=== PATIENT | female | born 1990 | race African-American/Black ===

== ENCOUNTER 2021-01-06 16:56 | Observation (INO) ==
[2021-01-06] MEDS ORDERED: NS 0.9% 1000 ml BAG 1,000 ML IV ONE (20:15)
[2021-01-06 21:58] LABS: ABS Monocytes 0.7 10^3/ul (0-0.8); ABS Neutrophils 5.5 10^3/ul (1.5-7.7); Eosinophil % 0.4 %; Hematocrit 41 % (35-47); Hemoglobin 14.1 g/dL (12.0-16.0); Lymphocyte % 32.3 %; Mean Corpuscular HGB Conc 34 g/dL (31-36); Mean Corpuscular Hemoglobin 31 pg (27-31); Mean Corpuscular Volume 92 fL (80-97); Mean Platelet Volume 7.4 fL (7.4-10.4); Platelet Count 352 10^3/uL (150-450); Red Blood Count 4.49 10^6 /uL (3.70-4.87); Red Cell Distribution Width 14 % (10-15); White Blood Count 9.3 10^3/uL (3.5-10.8)
[2021-01-06 22:20] LABS: ALT 7 U/L (7-52); Albumin 4.4 g/dL (3.2-5.2); Albumin/Globulin Ratio 1.4 (1-3); Alkaline Phosphatase 73 U/L (35-149); Blood Urea Nitrogen 6 mg/dL (6-24); C Reactive Protein 4.21 mg/L (<8.01); CO2 Carbon Dioxide 22 mmol/L (22-32); Chloride 104 mmol/L (101-111); EGFR African American 103.3 (>60); EGFR Non-African American 85.4 (>60); Globulin 3.1 g/dL (2-4); Glucose 68 mg/dL (70-100); Lipase < 10 U/L (11.0-82.0); Sodium 137 mmol/L (135-145); Total Protein 7.5 g/dL (6.4-8.9)
[2021-01-06 22:26] LABS: HCG Pregnancy < 0.60 mIU/mL
[2021-01-06 22:33] LABS: Anion Gap 11 mmol/L (2-11)
[2021-01-06 23:32] LABS: Urine Appearance Cloudy; Urine Color Yellow; Urine Specific Gravity 1.014 (1.002-1.030)
[2021-01-06 23:33] LABS: Urine Bilirubin Negative (Negative); Urine Blood Negative (Negative); Urine Glucose Negative (Negative); Urine Ketones 2+ (Negative); Urine Nitrite Negative (Negative); Urine Protein Negative (Negative); Urine Urobilinogen Negative (Negative)
[2021-01-07] MEDS ORDERED: Metoclopramide 5 MG/ML VIAL (10 mg) IV SLOW PU ONE (00:35)
[2021-01-07] MEDS ORDERED: Ciprofloxacin 400mg IVPREMIX 400 MG/200 ML BAG IVPB ONE (00:36)
[2021-01-07 01:02] LABS: AST Redraw 21 U/L (13-39); Magnesium 1.8 mg/dL (1.9-2.7); Potassium Redraw 3.5 mmol/L (3.5-5.0)
[2021-01-07] MEDS ORDERED: Metoclopramide 5 MG/ML VIAL (10 mg) IV PRN (01:52)
[2021-01-07] MEDS ORDERED: Magnesium Sulfate IV 1GM/100ML 1 GM/100 ML BAG IV ONE (01:54)
[2021-01-07] MEDS ORDERED: NS 0.9% 1000 ml BAG 1,000 ML IV ONE (01:55)
[2021-01-07 02:42] LABS: Lithium < 0.10 mmol/L (0.6-1.2)
[2021-01-07] MEDS: Prochlorperazine 5 mg/ml 2 ml VIAL (10 mg) IV PRN ×2 (04:46→12:27)
[2021-01-07] MEDS: NS 0.9% 1000 ml BAG 1,000 ML IV SCH ×3 (04:50→22:49)
[2021-01-07] MEDS: metroNIDAZOLE IV 500 MG/100ML 500 MG/100 ML BAG IVPB SCH ×2 (06:49→14:03)
[2021-01-07] MEDS ORDERED: cefTRIAXone 1 gm/50 mL NS BAG 1 GM/50 ML BAG IVPB SCH (08:00)
[2021-01-08] MEDS: NS 0.9% 1000 ml BAG 1,000 ML IV SCH (05:40)
[2021-01-08 07:01] LABS: Calcium 8.1 mg/dL (8.6-10.3); EGFR African American 141.3 (>60); EGFR Non-African American 116.8 (>60); Potassium 3.4 mmol/L (3.5-5.0)
[2021-01-08] MEDS ORDERED: Potassium Chloride LIQUID 20 MEQ/15 ML LIQUID PO ONE (07:42)
[2021-01-08] MEDS ORDERED: Magnesium Sulfate 2 gm BAG 2 GM/50 ML BAG IVPB ONE (09:35)
[2021-01-08 11:47] VITALS: BP 138/92
== END 2021-01-08 13:45 | disposition home or self-care (01) ==
LOC: SSU 16:56 → ED 16:56 → SUATTDRO 01-07 01:49 → SSU 01-07 03:52
PROVIDERS: ADMIT Student in an Organized Health Care Education/Training Program; ATTEND Internal Medicine

== ENCOUNTER 2021-07-31 11:52 | Inpatient (IN) ==
[2021-07-31] MEDS ORDERED: LORazepam 2 mg VIAL 1 ml IV PUSH ONE (12:00)
[2021-07-31] MEDS ORDERED: Lorazepam PYXIS KEY PRN ×2 (12:00→21:54)
[2021-07-31] MEDS ORDERED: Lactated Ringers 1000 ml BAG 1,000 ML IV ONE ×2 (12:00→13:55)
[2021-07-31 12:25] LABS: ABS Eosinophils 0.1 10^3/ul (0-0.6); ABS Lymphocytes 2.2 10^3/ul (1.0-4.8); ABS Neutrophils 6.1 10^3/ul (1.5-7.7); Eosinophil % 0.6 %; Hematocrit 43 % (35-47); Hemoglobin 14.7 g/dL (12.0-16.0); Lymphocyte % 23.5 %; Mean Corpuscular HGB Conc 35 g/dL (31-36); Mean Corpuscular Hemoglobin 30 pg (27-31); Mean Corpuscular Volume 88 fL (80-97); Nucleated Red Blood Cells % 0.2; Platelet Count 392 10^3/uL (150-450); Red Blood Count 4.84 10^6 /uL (3.70-4.87); Red Cell Distribution Width 14 % (10-15); White Blood Count 9.3 10^3/uL (3.5-10.8)
[2021-07-31 12:39] LABS: Albumin 4.8 g/dL (3.2-5.2); Anion Gap 18 mmol/L (2-11); CO2 Carbon Dioxide 17 mmol/L (22-32); Calcium 9.6 mg/dL (8.6-10.3); Chloride 99 mmol/L (101-111); Magnesium 2.3 mg/dL (1.9-2.7); Potassium 3.7 mmol/L (3.5-5.0); Sodium 134 mmol/L (135-145)
[2021-07-31 12:45] LABS: ALT 8 U/L (7-52); AST 17 U/L (13-39); Albumin/Globulin Ratio 1.5 (1-3); Alkaline Phosphatase 64 U/L (35-149); Blood Urea Nitrogen 24 mg/dL (6-24); C Reactive Protein 10.42 mg/L (<8.01); Globulin 3.1 g/dL (2-4); Glucose 62 mg/dL (70-100); Lipase 13 U/L (11.0-82.0); Total Protein 7.9 g/dL (6.4-8.9); eGFR CKD-EPI 32.7 (>60)
[2021-07-31 13:27] LABS: HCG Pregnancy < 0.60 mIU/mL
[2021-07-31] MEDS ORDERED: Trimethobenzamide *IM* 100 mg/ml 2 ml VIAL (200 mg) IM ONE (14:34)
[2021-07-31 15:34] LABS: Lithium 0.45 mmol/L (0.6-1.2)
[2021-07-31 16:59] LABS: Urine Appearance Cloudy; Urine Bilirubin Negative (Negative); Urine Blood 1+ (Negative); Urine Color Yellow; Urine Glucose 1+(50 mg/dL) (Negative); Urine Ketones 2+ (Negative); Urine Nitrite Negative (Negative); Urine Protein 2+(100 mg/dL) (Negative); Urine Specific Gravity 1.011 (1.002-1.030); Urine Urobilinogen Negative (Negative)
[2021-07-31 17:13] LABS: Urine Bacteria 1+ (Absent); Urine Red Blood Cell 1+(3-5/hpf) (Absent); Urine Squamous Epithelial Cell Present (Absent); Urine Transitional Epithelial Present (Absent); Urine White Blood Cell 3+(>20/hpf) (Absent)
[2021-07-31 17:36] LABS: Urine Creatinine Concentration 90.24 mg/dL
[2021-07-31 18:03] LABS: Albumin 4.2 g/dL (3.2-5.2); Albumin/Globulin Ratio 1.4 (1-3); Calcium 9.2 mg/dL (8.6-10.3); Globulin 2.9 g/dL (2-4); Total Bilirubin 0.4 mg/dL (0.2-1.0); Total Protein 7.1 g/dL (6.4-8.9)
[2021-07-31 18:05] LABS: Potassium 3.8 mmol/L (3.5-5.0)
[2021-07-31] MEDS ORDERED: NS 0.9% 1000 ml BAG 1,000 ML IV SCH (18:30)
[2021-07-31] MEDS ORDERED: Trimethobenzamide *IM* 100 mg/ml 2 ml VIAL (200 mg) IM PRN (18:47)
[2021-07-31] MEDS: Pantoprazole VIAL 40 MG VIAL IV SCH (19:30)
[2021-07-31] MEDS: LORazepam 2 mg VIAL 1 ml IV PUSH PRN (22:27)
[2021-07-31] MEDS: LITHIUM CARB PO SCH ×2 (23:07)
[2021-08-01] MEDS: LORazepam 2 mg VIAL 1 ml IV PUSH PRN ×3 (04:31→17:48)
[2021-08-01 05:47] LABS: ABS Eosinophils 0.1 10^3/ul (0-0.6); ABS Lymphocytes 2.2 10^3/ul (1.0-4.8); ABS Monocytes 0.8 10^3/ul (0-0.8); ABS Neutrophils 4.8 10^3/ul (1.5-7.7); Eosinophil % 0.8 %; Hematocrit 41 % (35-47); Hemoglobin 13.5 g/dL (12.0-16.0); Lymphocyte % 27.5 %; Mean Corpuscular HGB Conc 33 g/dL (31-36); Mean Corpuscular Hemoglobin 30 pg (27-31); Mean Corpuscular Volume 89 fL (80-97); Platelet Count 340 10^3/uL (150-450); Red Blood Count 4.54 10^6 /uL (3.70-4.87); Red Cell Distribution Width 13 % (10-15); White Blood Count 7.8 10^3/uL (3.5-10.8)
[2021-08-01 06:34] LABS: Calcium 9.1 mg/dL (8.6-10.3); Potassium 3.6 mmol/L (3.5-5.0)
[2021-08-01 06:40] LABS: eGFR CKD-EPI 49.7 (>60)
[2021-08-01] MEDS: Pantoprazole VIAL 40 MG VIAL IV SCH (08:55)
[2021-08-01] MEDS: HYDROXYCHLOROQUINE 200 MG PO SCH ×2 (08:56→21:52)
[2021-08-01] MEDS ORDERED: chlorproMAZINE 25 MG/ML 2 ML (50 MG) IV PRN (11:16)
[2021-08-01 11:54] LABS: TSH Ultra Thyroid Stim Horm 0.52 mcIU/mL (0.34-5.60)
[2021-08-01 12:26] LABS: Urine Appearance Cloudy; Urine Bilirubin Negative (Negative); Urine Blood 1+ (Negative); Urine Color Yellow; Urine Glucose Negative (Negative); Urine Ketones 2+ (Negative); Urine Nitrite Negative (Negative); Urine Protein Negative (Negative); Urine Specific Gravity 1.013 (1.002-1.030); Urine Urobilinogen Negative (Negative)
[2021-08-01] MEDS: CHLORPROMAZINE IV PRN (13:03)
[2021-08-01] MEDS: NS 0.9% IV PRN (13:03)
[2021-08-01 13:11] LABS: Urine Bacteria Absent (Absent); Urine Red Blood Cell Trace(0-2/hpf) (Absent); Urine Squamous Epithelial Cell Present (Absent); Urine White Blood Cell 2+(11-20/hpf) (Absent)
[2021-08-01 14:45] LABS: Anion Gap 12 mmol/L (2-11); Blood Urea Nitrogen 16 mg/dL (6-24); C Reactive Protein 6.47 mg/L (<8.01); CO2 Carbon Dioxide 20 mmol/L (22-32); Calcium 9.3 mg/dL (8.6-10.3); Chloride 105 mmol/L (101-111); Glucose 76 mg/dL (70-100); Potassium 3.5 mmol/L (3.5-5.0); Rheumatoid Factor < 10 IU/mL (<15); Sodium 137 mmol/L (135-145); eGFR CKD-EPI 65.5 (>60)
[2021-08-01 20:07] LABS: Albumin 4.4 g/dL (3.2-5.2); Indirect Bilirubin 0.4 mg/dL (0.3-1.0)
[2021-08-01 20:13] LABS: ALT 7 U/L (7-52); AST 18 U/L (13-39); Albumin/Globulin Ratio 1.6 (1-3); Alkaline Phosphatase 55 U/L (35-149); Globulin 2.8 g/dL (2-4); Total Protein 7.2 g/dL (6.4-8.9)
[2021-08-01] MEDS: LITHIUM CARB PO SCH (21:52)
[2021-08-02] MEDS: NS 0.9% IV PRN ×2 (01:49→08:24)
[2021-08-02] MEDS: CHLORPROMAZINE IV PRN ×2 (01:49→08:24)
[2021-08-02] MEDS: HYDROXYCHLOROQUINE 200 MG PO SCH (08:24)
[2021-08-02] MEDS: Pantoprazole VIAL 40 MG VIAL IV SCH (08:24)
[2021-08-02 09:43] LABS: ALT 8 U/L (7-52); Albumin/Globulin Ratio 1.6 (1-3); Alkaline Phosphatase 50 U/L (35-149); Blood Urea Nitrogen 10 mg/dL (6-24); CO2 Carbon Dioxide 21 mmol/L (22-32); Calcium 9.4 mg/dL (8.6-10.3); Chloride 109 mmol/L (101-111); Globulin 2.5 g/dL (2-4); Glucose 88 mg/dL (70-100); Sodium 139 mmol/L (135-145); Total Protein 6.5 g/dL (6.4-8.9); eGFR CKD-EPI 120.4 (>60)
[2021-08-02 12:26] LABS: Anion Gap 9 mmol/L (2-11)
[2021-08-02 15:20] LABS: Potassium Redraw 3.9 mmol/L (3.5-5.0)
[2021-08-02 15:36] VITALS: BP 135/95
[2021-08-03 10:25] LABS: Anti SSA/RO Antibody <0.2 U; SS-B/La Antibody <0.2 U
== END 2021-08-02 17:20 | disposition home or self-care (01) | DRG 683 ==
LOC: EDHOLD 11:52 → ED 11:52 → SUATTDRO 18:18 → MED 21:36
PROVIDERS: ADMIT Internal Medicine; ATTEND Internal Medicine